=== PATIENT | male | born 1980 | race Caucasian/White ===

== ENCOUNTER 2021-05-27 09:57 | Outpatient (CLI) | payer OTHER, SELFPAY ==
--- NOTE | ~2021-05-27 | XR_ITS ---
EXAMINATION: XR abdomen/kub 1V INDICATION: Calcium kidney stone TECHNIQUE: Supine view of the abdomen is obtained. COMPARISON: None FINDINGS: A 12 mm calcification of the left upper quadrant may be within the left kidney. There is a questionable 3 mm stone in the right kidney lower pole. Pelvic calcifications likely reflect phleboli ths. No definite stones are identified along the expected courses of the ureters. The bowel gas patte rn is normal. IMPRESSION: 1. Possible bilateral nephrolithiasis as described above. Reviewed, dictated and finalized at location A. [employer]
== END 2021-05-27 09:58 | disposition home or self-care (01) ==
PROVIDERS: Visit Provider Urology
DX: N20.0 Calculus of kidney (principal)
CPT/HCPCS: 74018